=== PATIENT | male | born 1955 | race Caucasian/White ===

== ENCOUNTER 2025-03-17 11:21 | Emergency (ER) | payer OTHER, SELFPAY ==
--- NOTE | 2025-03-17 11:23 | ED_ITS ---
HPI - Skin/Abscess/Foreign Bdy General Chief complaint: Skin/Abscess/Foreign Body Stated complaint: poison casandra Time Seen by Provider: 03/17/25 11:22 Source: patient Mode of arrival: ambulatory Limitations: no limitations History of Present Illness HPI narrative: Patient is a 69-year-old male who presents with rash to left neck, right hand. States he was in [place] in thinks he got poison casandra 2-3 days ago. Denies any shortness of breath or difficulty swallowing. 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 Patient also states his hemorrhoids have been bothering him. Patient has used preparation H. usually sits and drives for 3 hours at a time. Denies any bleeding from rectum. Related Data Home Medications ?Medication ?Instructions ?Recorded ?Confirmed ?Last Taken ?Type amlodipine 10 mg tablet mg 03/17/25 Unknown History anastrozole 1 mg tablet mg 03/17/25 Unknown History atorvastatin 10 mg tablet mg 03/17/25 Unknown History ergocalciferol (vitamin D2) 1,250 03/17/25 Unknown History mcg (50,000 unit) capsule finasteride 5 mg tablet mg 03/17/25 Unknown History losartan 50 mg tablet mg 03/17/25 Unknown History metformin 500 mg tablet mg 03/17/25 Unknown History montelukast 10 mg tablet mg 03/17/25 Unknown History pantoprazole 40 mg tablet,delayed mg PO 03/17/25 Unknown History release tadalafil 20 mg tablet mg 03/17/25 Unknown History tamsulosin 0.4 mg capsule mg PO 03/17/25 Unknown History Allergies Allergy/AdvReac Type Severity Reaction Status Date / Time No Known Allergies Allergy Verified 03/17/25 11:30 Review of Systems Review of Systems: All systems reviewed & are unremarkable except as noted in HPI and below Constitutional: Constitutional: Denies body ache(s), Denies chills, Denies fatigue, Denies fever(s), Denies headache(s), Denies malaise and Denies weakness Eyes: Eyes: Denies blurry vision, Denies irritation and Denies loss of vision ENT: Denies otalgia, Denies headache(s), Denies nasal discharge, Denies sinus pain and Denies sore throat Cardiovascular: Cardiovascular: Denies chest pain, Denies irregular heart rhythm and Denies dyspnea Respiratory: Respiratory: Denies dyspnea Gastrointestinal: Gastrointestinal: Denies abdominal pain, Denies melena, Denies hematochezia, Denies diarrhea, Denies nausea and Denies vomiting Musculoskeletal: Musculoskeletal: Denies back pain, Denies myalgias and Denies arthralgias Integumentary/Breasts: Skin/Breast: Reports pruritus and Reports rash Neurologic: Denies headache(s), Denies loss of vision and Denies weakness Psychiatric: Psychiatric: Reports no additional psychiatric complaints Endocrine: Endocrine: Denies fatigue PMFSH Comments At time of signature, agree with nursing past medical, surgical, social and family history. There is no relevant family history pertinent to the presenting complaint. Exam Const: General: cooperative, healthy appearing, comfortable, no acute distress and well nourished Nutritional Appearance: well nourished Orientation/con sciousness: patient oriented x3 Limitations: no limitations HENMT: Head: normal to inspection, normocephalic and atraumatic Ears: hearing grossly normal bilaterally and external ears normal Face/Nose/Sinus: Normal external nose present, normal facial exam and face symmetric Face and sinus: normal facial exam and face symmetric Mouth: Yes lip normal Eyes: General: appearance normal, both eyes and all related structures Alignment and Position: alignment normal and position normal Periorbital: periorbital findings normal Eyelids: eyelids normal Pupils: Equal, round and reactive pupils present EOM: EOMs intact bilaterally Neck: Neck: normal visual inspection, full ROM and supple Chest: Chest palpation & inspection: normal inspection of the chest Resp: Effort & Inspection: normal respiratory effort and able to speak in complete sentences Auscultation: clear to auscultation bilaterally Cardio: Rate: regular rate Rhythm: regular rhythm Heart sounds: S1 normal heart sound present and S2 normal heart sound present GI: Inspection: normal to inspection Rectal Exam: deferred Skin: General skin exam: normal color and no rashes or lesions noted Neuro: General: patient oriented x3 and moves all extremities Cranial nerves: Yes Equal, round and reactive pupils present Speech: normal speech Gait exam (Neuro): Normal gait present Extrem: General: normal to inspection, full ROM and no edema Psych: Appearance: grossly normal and well kempt Mental Status: mental status grossly normal Speech and movement: Normal speech and movement present Affect: normal affect Attitude: cooperative Thought process: Normal thought process present Course Course Emergency Course: Patient is aware of diagnosis, understands and agrees to treatment plan. Anticipatory guidance given. Patient agrees to follow-up as directed and is aware of reasons to seek care at the emergency department. Portions of this record may have been created with voice recognition software Level of Care: Express Care Visit Vital Signs Vital signs: Reviewed MDM - Skin/Abscess/Foreign Bdy MDM Narrative Medical decision making narrative: Pt well hydrated appearing, in no respiratory distress, hemodynamically stable. Recommend supportive care. The patient is stable at time of discharge the clinical impression was discussed and the patient was given the opportunity to ask questions, which were addressed as completely as possible given the information available at present. Anticipatory guidance and return to care precautions were discussed and the importance of primary care follow-up was stressed and encouraged. The patient voiced understanding of the plan, indications to return, and the need for follow-up. Exam findings show no acute concerns or changes Patient is appropriate for outpatient treatment and follow-up. Differential Diagnosis Differential diagnosis: Likely viral exanthem, urticaria, allergic reaction to drug, cellulitis, eczema, insect bites, contact dermatitis (Poison casandra) and other (Hemorrhoids) Discharge Plan Discharge Clinical Impression: Poison casandra dermatitis, Medication refill, Acute hemorrhoid Patient Disposition: Home Condition: Stable Instructions: Poison Casandra (ED) Additional Instructions: Take steroids in the morning with food Prevention is always better than treatment. Learn to identify poison casandra, oak, and sumac and avoid it. Wear long sleeves, long pants, shoes, and socks. If you touched the plant, try to keep your hands away from your eyes, mouth, and face. Wash the skin thoroughly with soap and cool water as soon as possible. Scrub u nder the fingernails with a brush to prevent spreading of the resin to other parts of the body by touching or scratching. Remember to wash any clothing with soap and hot water as the resin can persist for many months and cause further dermatitis. You should NOT use antihistamine creams or lotions, anesthetic creams containing benzocaine, or antibiotic creams containing neomycin or bacitracin to the skin. These creams or ointments could make the rash worse. For some people, adding oatmeal to a bath, applying cool wet compresses, and applying calamine lotion may help to relieve itching. Once the blisters begin weeping fluid, astringents containing aluminum acetate (Burow's solution) and [place] may help to relieve the rash. IF symptoms get worse to follow up with your primary care provider or seek ER visit if you developing difficulty breathing, weakness, dizziness. Take 30g of fiber with 2 liters of water daily, This will take 2 to 6 weeks to work and will result in less bleeding and lessen progression of hemorrhoids. Warm baths/soaks with empsom salts (sitz bath) three times daily can provide comfort. Take stool softeners to avoid straining. Follow up with your primary car provider in 2-3 days or sooner if you have worsening symptoms. Go to the ER if you have any urgent concerns. Your blood pressure was elevated above 120/80 today at Urgent Care. This puts you above the threshold for follow up visit with a primary care provider. High blood pressure does not usually cause any symptoms, however it may lead to kidney failure, stroke, heart disease just to name a few if untreated . Many people are anxious when seeing a provider or nurse. As a result, you are not diagnosed with hypertension at this time unless your blood pressure is persistently high at two office visits at least one week apart. Some things that can help lower blood pressure are lifestyle modifications, such as light exercise, decreased salt in diet, and weight loss. It is important to follow up with a PCP about this within 1 week. Patient Language: Tamazight Prescriptions: New prednisone 10 mg tablet See Rx Instructions .ROUTE .COMPLEX Qty: 35 0RF Rx Instructions: 40 mg daily for 5 days, 20 mg daily for 5 days, 10 mg daily for 5 days cholecalciferol (vitamin D3) 1,250 mcg (50,000 unit) capsule 1,250 mcg PO WEEKLY Qty: 7 0RF ergocalciferol (vitamin D2) 1,250 mcg (50,000 unit) capsule 1,250 mcg PO WEEKLY Qty: 7 0RF anastrozole 1 mg tablet 1 mg PO WEEKLY Qty: 7 0RF Stool Softener 50 mg capsule 50 mg PO DAILY Qty: 30 0RF No Action losartan 50 mg tablet metformin 500 mg tablet anastrozole 1 mg tablet atorvastatin 10 mg tablet tamsulosin 0.4 mg capsule PO amlodipine 10 mg tablet pantoprazole 40 mg tablet,delayed release (DR/EC) PO montelukast 10 mg tablet ergocalciferol (vitamin D2) 1,250 mcg (50,000 unit) capsule finasteride 5 mg tablet tadalafil 20 mg tablet Follow-up/Referrals: Gianna,Luis A [Other] - 3 Days Time of Disposition: 11:58
--- OUTSIDE RECORDS SUMMARY | 2025-03-17 11:31 | XMS_ITS | Referral Summary ---
Author Organization [facility] r Address [address] [place] [address] Care Team Providers Care Information Assistant Name Role Phone Curt Carter MD Primary Care Provider [phone] Allergies No known active allergies Medications naproxen sodium 220 mg capsule Take by mouth. Active albuterol HFA (ProAir HFA) 90 mcg/actuation inhalerIndicati ons:Acute maxillary sinusitis, recurrence not specified Inhale 2 puffs every 4 (four) hours as needed for wheezing or shortness of breath 8.5 g 11 9 Active Active Problems Problem Noted Date Diagnosed Date Benign prostatic hyperplasia without lower urinary tract symptoms 08/11/2019 Assessment & Plan (08/11/2019 1:21 PM IT DESKTOP SUPPORT SPECIALIST): Patient noted to have enlarged prostate on exam, denies any current symptoms will continue to monitor. 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 Therefore he was given instructions on shoulder pain and exercises. Elevated blood pressure read ing with diagnosis of hypertension 08/11/2019 Assessment & Plan (08/11/2019 1:23 PM IT DESKTOP SUPPORT SPECIALIST): . Patient's blood pressure reading elevated in the office discussed with patient monitoring his sodium intake trying limited to less than 4 g a day and increase his regular exercise. 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 Will get baseline labs including liver and kidney function and complete blood count. Mild intermittent asthma without complication Assessment & Plan (08/11/2019 1:24 PM IT DESKTOP SUPPORT SPECIALIST): Patient with a history of mild intermittent asthma and a remote history of cigarette smoking if his symptoms worsen would recommend further workup including imaging with CT as well as pulmonary function studies. History of kidney stones 08/11/2019 Assessment & Plan (08/11/2019 1:23 PM IT DESKTOP SUPPORT SPECIALIST): Patient with a history of kidney stones has been followed by urology but he doesn't remember the name of his physician. He states he is up in [place]. Right foot pain 09/24/2017 Assessment & Plan (09/24/2017 9:22 AM IT DESKTOP SUPPORT SPECIALIST): I speculate his foot pain is related to his shoe wear. I have encouraged him to purchase insoles with good arch support. Bronchitis 05/31/2017 Overview (05/31/2017): Discusssed care, we will start antibiotics and prednisone taper. SED probiotics encouraged. Continue HFA Please establish care with PCP. Right upper quadrant abdominal pain 05/31/2017 Overview (05/31/2017): Rest fluids. IB with food prn SED Consider imaging if not improved. Assessment & Plan (09/24/2017 9:25 AM IT DESKTOP SUPPORT SPECIALIST): We are obtaining labs to determine if there is a metabolic or physical reason for his discomfort. Urinalysis was negative for bacteria, nitrites, and blood. We discussed that he needs to obtain a PCP for chronic care issues. He was provided with a list of providers accepting patients. Patient was instructed to call our office if their symptoms worsen or don't improve. Annual physical exam 02/26/2017 Assessment & Plan (02/26/2017 10:02 AM CDT): Normal physical exam. Labs drawn per the patient's request. 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 Certified for two years. Assessment & Plan (02/26/2017 11:55 AM CDT): Normal physical exam. 2 year certification provided. Resolved Problems Problem Noted Date Diagnosed Date Resolved Date Acute maxillary sinusitis 03/31/2018 Overview (03/31/2018): We will refill flownase and Pro Air. We will start antibiotics. Depo Medrol SED Probiotics encouraged. Please call if not improving in 3-4 days Chest wall pain 03/31/2018 08/11/2019 Overview (03/31/2018): Discussed care , patient needs to establish care with a PCP. We will start Mobic and stop OTC meds. SED Immunizations Immunization Administration Dates Next Due Influenza, Quadrivalent, Spl it, Preservative Free, Intramuscular 05/30/2018,05/20/2014 Influenza, Unspecified 05/20/2019 Td, Unspecified 08/20/2015 ZOSTER LIVE 08/20/2015 Social History Tobacco Use Types Packs/Day Years Used Date Smoking Tobacco: Former Cigarettes 1 20 1 975 - 1994 Smokeless Tobacco: Never Alcohol Use Standard Drinks/Week Comments Yes 5 (1 standard drink = 0.6 oz pur e alcohol) AUDIT-C Answer Date Recorded Frequency of Alcohol Consumption 2-3 times a wee k 08/11/2019 Average Number of Drinks 5 or 6 019 Frequency of Binge Drinking Less than monthly PHQ-2 Answer Date Recorded PHQ-2 Score 0 08/11/2019 Education Answer Date Recorded What is the highest level of school you have completed or the highest degree you have received? 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 Not on file Not on file Not on file Last Filed Vital Signs Vital Sign Reading Time Taken Comments Blood Pressure 158/88 08/11/2019 10:25 AM IT DESKTOP SUPPORT SPECIALIST Pulse 74 08/11/2019 10:25 AM IT DESKTOP SUPPORT SPECIALIST Temperature 36.1 C (96.9 F) 08/11/2019 10:25 AM IT DESKTOP SUPPORT SPECIALIST Respiratory Rate 18 01/22/2019 8:36 AM CDT Oxygen Saturation 97% 08/11/2019 10:25 AM IT DESKTOP SUPPORT SPECIALIST Inhaled Oxygen Concentration - - Weight 96.9 kg (213 lb 9.6 oz) 08/11/2019 10:25 AM IT DESKTOP SUPPORT SPECIALIST Height 172.7 cm (5' 8) 08/11/2019 10:25 AM IT DESKTOP SUPPORT SPECIALIST Body Mass Index 32.48 08/11/2019 10:25 AM IT DESKTOP SUPPORT SPECIALIST Plan of Treatment Not on file Insurance Member Subscriber Plan / Payer (Ef fective 2016-Present) Name:Lucio De La Rosa Relation to Subscriber:Spouse Name:Eliseo De La Rosa Date of :1962 (Home) [phone] (Work) Address: [address] [place] [address] Payer ID:[id number] (NAIC) Type:[facility] HMO/PPO Address: [facility] [address] [place] [address] Care Teams Information Assistant Relationship Specialty Start Date End Date Curt Carter MD PCP - General Internal Medicine 08/11/19
--- OUTSIDE RECORDS SUMMARY | 2025-03-17 11:31 | XMS_ITS | Encounter Summary ---
Author Organization [facility] Address [address] [place] [address] Phone Care Team Providers Care Cold Type Artist Name Role Phone No, Physician Primary Care Provider [phone] Margie Humphreys NP Primary Care Provider [phone] Curt Carter MD Primary Care Provider [phone] Encounter Details Date Type Department Care Team (Late st Contact Info) Description 09/24/2017 Orders Only [facility] ProviderCoco MD [address] [place] [id number] Social History Tobacco Use Types Packs/Day Years Used Date Smoking Tobacco: Never Smokeless Tobacco: Never Alcohol Use Standard Drinks/Week Comments Yes 0 (1 standard drink = 0.6 oz pur e alcohol) Sex and Gender Information Value Date Recorded Sex Assigned at Not on file Legal Sex Male 12:32 PM CLEAN UP WORKER Gender Identity Not on file Sexual Orientation Not on file documented as of this encounter Plan of Treatment Not on file documented as of this encounter Procedures Procedure Name Priority Date/Time Associated Diagnosis Comments DISCHARGE LABORATORY CUMULATIVE REPORT 09/24/2017 12:00 AM CLEAN UP WORKER documented in this encounter Results * DISCHARGE LABORATORY CUMULATIVE REPORT (09/24/2017 12:00 AM CLEAN UP WORKER) Narrative 09/24/2017 12:00 AM CLEAN UP WORKER Ordered by an unspecified provider. Historical Provider LAB BLOOD ORDERABLES Monika l Result documented in this encounter Visit Diagnoses Not on filedocumented in this encounter Care Teams Cold Type Artist Relationship Specialty Start Date End Date No, Physician PCP - General 02/26/17 06/09/18 Margie Humphreys NP [address] [place], [place] [id number] PCP - General 06/10/18 08/10/19 Curt Carter MD [address] [place] [id number] PCP - General Internal Medicine 08/11/19 documented as of this encounter
--- OUTSIDE RECORDS SUMMARY | 2025-03-17 11:31 | XMS_ITS | Clinical Summary ---
Author Organization [facility] r Address [address] [place] [address] Care Team Providers Care Cut Out Worker Name Role Phone Curt Carter MD Primary Care Provider [phone] Allergies No known active allergies Medications naproxen [...] 08/11/2019 Assessment & Plan (08/11/2019 1:21 PM LONG WALL MINING MACHINE TENDER): Patient noted to have enlarged prostate on exam, denies any current symptoms will continue to monitor. 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 Therefore he was given instructions on shoulder pain and exercises. Elevated blood pressure read ing with diagnosis of hypertension 08/11/2019 Assessment & Plan (08/11/2019 1:23 PM LONG WALL MINING MACHINE TENDER): . Patient's blood pressure reading elevated in the office discussed with patient monitoring his sodium intake trying limited to less than 4 g a day and increase his regular exercise. 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 Will get baseline labs including liver and kidney function and complete blood count. Mild intermittent asthma without complication Assessment & Plan (08/11/2019 1:24 PM LONG WALL MINING MACHINE TENDER): Patient with a history of mild intermittent asthma and a remote history of cigarette smoking if his symptoms worsen would recommend further workup including imaging with CT as well as pulmonary function studies. History of kidney stones 08/11/2019 Assessment & Plan (08/11/2019 1:23 PM LONG WALL MINING MACHINE TENDER): Patient with a history of kidney stones has been followed by urology but he doesn't remember the name of his physician. He states he is up in [place]. Right foot pain 09/24/2017 Assessment & Plan (09/24/2017 9:22 AM LONG WALL MINING MACHINE TENDER): I speculate his foot pain is related [...] improved. Assessment & Plan (09/24/2017 9:25 AM LONG WALL MINING MACHINE TENDER): We are obtaining labs to determine if [...] 05/20/2019 Td, Unspecified 08/20/2015 ZOSTER LIVE 08/20/2015 Surgical History Surgery Date Site/Laterality Comments APPENDECTOMY SINUS SURGERY NOSE SURGERY INGUINAL HERNIA REPAIR 08/20/1988 - 08/19/1989 Right UMBILICAL HERNIA REPAIR 08/20/2013 - 08/19/2014 LAPAROSCOPIC CHOLECYSTECTOMY 08/20/2013 - 08/19/2014 Medical History Medical History Date Comments Asthma Gallbladder disease GALLBLADDER Family History Medical History Relation Name Comments Other Father Pancreatic Dise [facility]; Cause of : Pancreatic Disease Pancreatitis Father Diabetes Mother Diabetes mellit ; Heart disease Mother Lung disease Mother on oxygen Other Sister 1 defibbrilator Heart disease Sister 2 defibbrillator . 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 Not on file Not on file Not on file Obstetrics History Last Filed Vital Signs Vital Sign Reading Time Taken Comments Blood Pressure 158/88 08/11/2019 10:25 AM LONG WALL MINING MACHINE TENDER Pulse 74 08/11/2019 10:25 AM LONG WALL MINING MACHINE TENDER Temperature 36.1 C (96.9 F) 08/11/2019 10:25 AM LONG WALL MINING MACHINE TENDER Respiratory Rate 18 01/22/2019 8:36 AM CDT Oxygen Saturation 97% 08/11/2019 10:25 AM LONG WALL MINING MACHINE TENDER Inhaled Oxygen Concentration - - Weight 96.9 kg (213 lb 9.6 oz) 08/11/2019 10:25 AM LONG WALL MINING MACHINE TENDER Height 172.7 cm (5' 8) 08/11/2019 10:25 AM LONG WALL MINING MACHINE TENDER Body Mass Index 32.48 08/11/2019 10:25 AM LONG WALL MINING MACHINE TENDER Plan of Treatment Not on file Insurance Member Subscriber Plan / Payer (Ef fective 2016-Present) Name:Lucio De La Rosa Relation to Subscriber:Spouse Name:Eliseo De La Rosa Date of :1962 (Home) [phone] (Work) Address: [address] [place] [address] Payer ID:[id number] (NAIC) Type:[facility] HMO/PPO Address: [facility] [address] [place] [address] Care Teams Cut Out Worker Relationship Specialty Start Date End Date Curt Carter MD PCP - General Internal Medicine 08/11/19
[2025-03-17 11:37] VITALS: BP 149/76; PULSE 85; RESP 18; TEMP 36.9; O2SAT 98
== END 2025-03-17 12:00 | disposition home or self-care (01) ==
PROVIDERS: Emergency Provider Nurse Practitioner Family
DX: L23.7 Allergic contact dermatitis due to plants, except food (principal); K64.9 Unspecified hemorrhoids; Z76.0 Encounter for issue of repeat prescription; I10 Essential (primary) hypertension; E78.00 Pure hypercholesterolemia, unspecified; J45.909 Unspecified asthma, uncomplicated; K21.9 Gastro-esophageal reflux disease without esophagitis; N40.0 Benign prostatic hyperplasia without lower urinary tract symptoms; M19.90 Unspecified osteoarthritis, unspecified site; E11.9 Type 2 diabetes mellitus without complications
CPT/HCPCS: 99203; G0463